=== PATIENT | male | born 1960 | race Two or more races ===

== ENCOUNTER 2025-01-18 14:59 | Emergency (ER) | payer MEDICARE, MEDICAID ==
[~2025-01-18] VITALS: Ht 172.7 cm; Wt 75.1 kg
[2025-01-18 15:31] LABS: Urine Bacteria None Seen /hpf (None Seen)
--- NOTE | 2025-01-18 15:34 | ED.PDOC ---
History of present illness HPI Comments 64 year old male presents to the ED with a chief complaint of hyperglycemia onset 1 week. Patient states he has been checking his glucose daily, for the past week has been elevated. BS today was 500, decided to come to ED. Upon triage, patient's BS was 311. States he is complaint with his medication. PMHx HTN, DM. Denies any dizziness, nausea, vomiting, diarrhea, abdominal pain, chest pain, shortness of breath, dysuria, hematuria. No other symptoms or modifying factors present at this time. Patient utilizes metformin and glyburide. Chief Complaint: Hyperglycemia Time Seen by MD: 15:15 History of present illness: Nurses Notes, Medications, Allergies Allergies: Coded Allergies: NO KNOWN ALLERGIES (Unverified , 01/18/25) Information Source: Patient Mode of Arrival: Ambulatory Timing: Weeks Duration: Since onset Prehospital treatment: None, Treatment [place]: Other History of: Diabetes Modifying factors: Nothing Associated signs and symptoms: None Past Medical History PAST MEDICAL HISTORY: DM, HTN Surgical History: Denies all surgeries Family History Family History: Reviewed,noncontributory to illness, No family hx of Cancer, No family hx of DM, No family hx of Heart maura, No family hx of HTN, No family hx ofKidney maura, No family hx of Liver maura, No family hx of Lung maura, No family hx of Stroke Social History Smoker: Non-Smoker Alcohol: Denies ETOH Use Drugs: Denies Drug Use Lives In: Home Constitutional: denies: chills, diaphoresis, fatigue, fever, malaise, sweats, weakness, others EENTM: denies: blurred vision, double vision, ear bleeding, ear discharge, ear drainage, ear pain, ear ringing, eye pain, eye redness, hearing loss, mouth pain, mouth swelling, nasal discharge, nose bleeding, nose congestion, nose pain, photophobia, tearing, throat pain, throat swelling, voice changes, others Respiratory: denies: cough, hemoptysis, orthopnea, SOB at rest, shortness of breath, SOB with excertion, stridor, wheezing, others Cardiovascular: denies: chest pain, dizzy spells, diaphoresis, Dyspnea on exertion, edema, irregular heart beat, left arm pain, lightheadedness, palpitations, PND, syncope, others Gastrointestinal: denies: abdomen distended, abdominal pain, blood streaked bowels, constipated, diarrhea, dysphagia, difficulty swallowing, hematemesis, melena, nausea, poor appetite, poor fluid intake, rectal bleeding, rectal pain, vomiting, others Genitourinary: denies: burning, dysuria, flank pain, frequency, hematuria, incontinence, penile discharge, penile sore, pain, testicle pain, testicle swelling, urgency, others Neurological: denies: dizziness, fainting, headache, left sided numbness, left sided weakness, numbness, paresthesia, pre-existing deficit, right sided numbness, right sided weakness, seizure, speech problems, tingling, tremors, weakness, others Musculoskeletal: denies: back pain, gout, joint pain, joint swelling, muscle pain, muscle stiffness, neck pain, others Integumetry: denies: bruises, change in color, change in hair/nails, dryness, laceration, lesions, lumps, rash, wounds, others Allergic/Immunocompromised: denies: Difficulty Healing, Frequent Infections, Hives, Itching, others Hematologic/Lymphatic: denies: anemia, blood clots, easy bleeding, easy bruising, swollen glands, others Endocrine: reports: others (hyperglycemia); denies: excessive hunger, excessive sweating, excessive thirst, excessive urination, flushing, intolerance to cold, intolerance to heat, unexplained weight gain, unexplained weight loss Psychiatric: denies: anxiety, bipolar disorder, depression, hopeless, panic disorder, schizophrenia, sleepless, suicidal, others All Other Systems: Reviewed and Negative Physical Exam General Appearance: No Apparent Distress ( Patient was in no distress at time of evaluation.), Normal HEENT: Normal ENT Inspection, Pharynx Normal, TMs Normal Neck: Full Range of Motion, Non-Tender, Normal, Normal Inspection Respiratory: Chest Non-Tender, Lungs Clear, No Accessory Muscle Use, No Respiratory Distress, Normal Breath Sounds Cardiovascular: No Edema, No JVD, No Murmur, No Gallop, Normal Peripheral Pulses, Regular Rate/Rhythm Breast Exam: Deferred Gastrointestinal: No Organomegaly, Non Tender, No Pulsatile Mass, Normal Bowel Sounds, Soft Genitalia: Deferred Pelvic: Deferred Rectal: Deferred Extremities: No calf tenderness, Normal capillary refill, Normal inspection, Normal range of motion, Non-tender, No pedal edema Musculoskeletal : Apperance: Normal Neurologic: Alert, No Motor Deficits, Normal Affect, Normal Mood, No Sensory Deficits Cerebellar Function: Normal Reflexes: Normal Skin: Dry, Normal Color, Warm Lymphatic: No Adenopathy Was a procedure done? Was a procedure done?: No Differential Diagnosis (DM) Differential Diagnosis: Other ( Hyperglycemia, sepsis, electrolyte abnormality, UTI) X-Ray, Labs, Meds, VS Vital Signs Date Time Temp Pulse Resp B/P (MAP) Pulse Ox O2 Delivery O2 Flow Rate FiO2 01/18/25 15:23 97.5 85 18 139/85 (103) 98 97.5 Lab Test 01/18/25 17:06 01/18/25 15:37 01/18/25 15:16 01/18/25 15:15 Range/Units Troponin I High Sensitivity 3 L 3 L </=54 ng/L White Blood Count 3.3 L 4.4-10.8 10^3/uL Red Blood Count 4.72 4.5-5.90 10^6/uL Hemoglobin 13.7 13.5-17.5 g/dL Hematocrit 41.1 41.0-53.0 % Mean Corpuscular Volume 87.2 80.0-100.0 fL Mean Corpuscular Hemoglobin 29.0 28.0-32.0 pg Mean Corpuscular Hemoglobin Concent 33.3 32.0-36.0 g/dL Red Cell Distribution Width 13.7 11.8-14.3 % Platelet Count 141 140-450 10^3/uL Mean Platelet Volume 9.8 6.9-10.8 fL Neutrophils (%) (Auto) 38.8 37.0-80.0 % Lymphocytes (%) (Auto) 47.4 10.0-50.0 % Monocytes (%) (Auto) 10.1 0.0-12.0 % Eosinophils (%) (Auto) 3.6 0.0-7.0 % Basophils (%) (Auto) 0.1 0.0-2.0 % Neutrophils # (Auto) 1.3 L 1.6-8.6 10 ^3/uL Lymphocytes # (Auto) 1.6 0.4-5.4 10 ^3/uL Monocytes # (Auto) 0.3 0-1.3 10 ^3/uL Eosinophils # (Auto) 0.1 0-0.8 10 ^3/uL Basophils # (Auto) 0 0-0.2 10 ^3/uL Nucleated Red Blood Cells 0.1 % Sodium Level 137 136-145 mmol/L Potassium Level 4.5 3.5-5.1 mmol/L Chloride Level 103 98-107 mmol/L Carbon Dioxide Level 26 20-31 mmol/L Anion Gap 8 5-15 Blood Urea Nitrogen 18 9-23 mg/dL Creatinine 1.34 H 0.700-1.30 mg/dL Glomerular Filtration Rate Calc 59 >90 mL/min BUN/Creatinine Ratio 13.4 10.0-20.0 Serum Glucose 318 H 74-106 mg/dL Lactic Acid Level 1.4 0.4-2.0 mmol/L Calcium Level 10.6 H 8.7-10.4 mg/dL Total Bilirubin 0.5 0.2-1.0 mg/dL Aspartate Amino Transferase (AST) 15 13-40 U/L Alanine Aminotransferase (ALT) 19 7-40 U/L Alkaline Phosphatase 82 46-116 U/L Total Protein 7.5 5.7-8.2 g/dL Albumin 4.5 3.2-4.8 g/dL Lipase 53 12-53 U/L Urine Color Light-yellow Yellow Urine Clarity Clear Clear Urine pH 5.0 5.0-9.0 Urine Specific [place] 1.031 1.001-1.035 Urine Protein Trace H Negative Urine Ketones Negative Negative Urine Blood Trace H Negative /uL Urine Nitrite Negative Negative Urine Bilirubin Negative Negative Urine Urobilinogen Normal Negative mg/dL Urine Leukocyte Esterase Negative Negative /uL Urine RBC 1 0 - 3 /hpf Urine Microscopic WBC 1 0-3 /HPF Urine Squamous Epithelial Cells None seen <5 /hpf Urine Bacteria None seen None Seen /hpf Urine Glucose 4+ H Normal mg/dL POC Glucose 311 H 70-106 mg/dl X-Ray, Labs, Meds, VS Comment All studies performed the ED were evaluated by me personally. Serum and urinalysis were unremarkable for any systemic concerns. Advised patient that he will need to follow up with his primary care provider for discussions related to improved medication management of his diabetes. I will send the patient home with a prescription for med forearm and 1000 mg b.i.d. as needed. Time of 1ST Reevaluation: 15:45 Reevaluation 1ST: Unchanged Patient Education/Counseling: Diagnosis, Treatment, Prognosis Family Education/Counseling: No Family Present Departure 1 Departure Time of Disposition: 19:39 Impression: Primary Impression: Hyperglycemia due to diabetes mellitus Disposition: HOME / SELF CARE / HOMELESS Condition: Stable Additional Instructions: Advised patient follow up with his primary care provider for discussions related to improved medication management of his diabetes. Patient is going to receive a prescription today for 1000 mg of metformin to be used twice a day. This pushing should be filled if the patient is currently taking 500 mg twice a day. Patient should stop the 500 mg twice a day and start the 1000 mg twice a day e-Prescriptions Metformin Hydrochloride (Metformin Hcl) 1,000 Mg Tab 1 TAB PO BID, #60 TAB 0 Refills Prov: MYKEL CALLAWAY PAC 01/18/25 Discharged With: Self, Friend Critical Care Note Critical Care Time?: No Stability Stability form required: No I personally scribed for MYKEL CALLAWAY PAC ([email or web address]) on 01/18/25 at 15:34. Electronically submitted by Isela Tomas ([email or web address]). MYKEL CALLAWAY PAC Jan 18, 2025 15:34
[2025-01-18 15:41] LABS: Urine Blood TRACE /uL (Negative); Urine Clarity Clear (Clear); Urine Color Light-Yellow (Yellow); Urine Protein, UAD TRACE (Negative); Urine Specific Gravity 1.031 (1.001-1.035); Urine Squamous Epithelial Cell None Seen /hpf (<5); Urine Urobilinogen Normal (Negative); Urine WBC 1 /HPF (0-3)
[2025-01-18 16:08] LABS: Basophils # (auto) 0 10 ^3/uL (0-0.2); Basophils % (auto) 0.1 % (0.0-2.0); Eosinophils # (auto) 0.1 10 ^3/uL (0-0.8); Eosinophils % (auto) 3.6 % (0.0-7.0); Hematocrit 41.1 % (41.0-53.0); Hemoglobin 13.7 g/dL (13.5-17.5); Lymphocytes # (auto) 1.6 10 ^3/uL (0.4-5.4); Lymphocytes % (auto) 47.4 % (10.0-50.0); Mean Corpuscular Hgb Conc. 33.3 g/dL (32.0-36.0); Mean Corpuscular Volume 87.2 fL (80.0-100.0); Monocytes # (auto) 0.3 10 ^3/uL (0-1.3); Monocytes % (auto) 10.1 % (0.0-12.0); Neutrophils # (auto) 1.3 10 ^3/uL (1.6-8.6); Neutrophils % (auto) 38.8 % (37.0-80.0); Nucleated Red Blood Cells % 0.1 %; Platelet Count (auto) 141 10^3/uL (140-450); Red Blood Cells 4.72 10^6/uL (4.5-5.90); Red Cell Distribution Width 13.7 % (11.8-14.3); White Blood Cell 3.3 10^3/uL (4.4-10.8)
[2025-01-18 16:27] LABS: Alanine Aminotransferase 19 U/L (7-40); Albumin 4.5 g/dL (3.2-4.8); Alkaline Phosphatase 82 U/L (46-116); Anion Gap 8 (5-15); Aspartate Aminotransferase 15 U/L (13-40); BUN/Creatinine Ratio 13.4 (10.0-20.0); Bilirubin, Total 0.5 mg/dL (0.2-1.0); Blood Urea Nitrogen 18 mg/dL (9-23); Carbon Dioxide 26 mmol/L (20-31); Chloride 103 mmol/L (98-107); Lipase 53 U/L (12-53); Potassium 4.5 mmol/L (3.5-5.1); Sodium 137 mmol/L (136-145); Total Protein 7.5 g/dL (5.7-8.2)
[2025-01-18 16:37] LABS: Calcium 10.6 mg/dL (8.7-10.4); Glucose 318 mg/dL (74-106)
[2025-01-18 19:36] VITALS: BP 121/75; PULSE 81; RESP 19; TEMP 98.7; O2SAT 97
[2025-01-18] MEDS ORDERED: METF-372 PO (19:41)
[2025-01-18] MEDS: InsuLIN REG 1unit/0.01ml Soln (100units/ml) IV ONE (19:47)
[2025-01-18] MEDS: SODIUM CHLORIDE 0.9% 1,000 ML IV ONE (19:47)
== END 2025-01-18 19:52 | disposition home or self-care (01) ==
LOC: ER 14:59
DX: E11.65 Type 2 diabetes mellitus with hyperglycemia (principal); I10 Essential (primary) hypertension
CPT/HCPCS: 36415; 80053; 81001; 82947; 82962; 83605; 83690; 84484; 85025